=== PATIENT | male | born 1985 | race African-American/Black ===

== ENCOUNTER 2019-05-11 13:33 | Inpatient (IN) ==
[2019-05-11] MEDS ORDERED: SODIUM CHLORIDE 0.9% 1000ML 1,000 ML IV SCH (14:00)
--- NOTE | 2019-05-11 14:09 | XRay Report ---
XR chest 1V portable CLINICAL HISTORY: 33 years-old Male presenting with OD. TECHNIQUE: Portable upright AP view of the chest was obtained. COMPARISON: None. FINDINGS: Cardiomediastinal silhouette normal. Moderately low lung lines. No focal opacity. No large effusion o r pneumothorax. Osseous structures normal. Upper abdomen normal. IMPRESSION: 1. Mildly low lung volumes. Otherwise no acute cardiopulmonary disease. Electronically signed by: Marvin Paige M.D. 05/11/2019 2:07 PM
[2019-05-11 14:15] LABS: Basophils # (auto) 0.01 K/uL (0-0.2); Basophils % (auto) 0.2 %; Eosinophils # (auto) 0.06 K/uL (0-0.5); Hematocrit (blood only) 40.3 % (42-52); Hemoglobin 13.8 g/dL (14.0-18.0); Immature Granulocytes # (auto) 0.01 K/uL (0.00-0.02); Immature Granulocytes % (auto) 0.2 %; Lymphocytes # (auto) 1.66 K/uL (1.2-3.4); Lymphocytes % (auto) 26.6 %; Mean Corpuscular Hgb Conc 34.2 g/dL (32-36); Mean Corpuscular Volume 88.2 fL (80-100); Mean Platelet Volume 9.9 fL (7.4-10.4); Monocytes # (auto) 0.25 K/uL (0.11-0.59); Neutrophils # (auto) 4.25 K/uL (1.4-6.5); Platelet Count 223 K/uL (130-400); RDW Coefficient of Variation 13.1 % (11.5-14.5); RDW Standard Deviation 42.4 fL (36.4-46.3); Red Blood Count 4.57 M/uL (4.7-6.1); White Blood Count 6.24 K/uL (4.8-10.8)
[2019-05-11 14:27] LABS: INR 1.1 (0.9-1.1); Partial Thromboplastin Time 26.7 Seconds (21.0-31.0); Prothrombin Time 10.9 Seconds (9.0-12.0)
[2019-05-11 14:38] LABS: iSTAT Creatinine 0.9 mg/dl (0.6-1.3); iSTAT Hemoglobin 13.9 g/dl (14.0-18.0); iSTAT Ionized Calcium 1.2 mmol/l (1.12-1.32); iSTAT Potassium 3.4 mEq/L (3.3-5.0)
[2019-05-11 14:43] LABS: Carbon Dioxide 25 mmol/L (21-32); Chloride 109 mmol/L (98-107); Potassium 3.5 mmol/L (3.5-5.1); Sodium 141 mmol/L (136-145)
[2019-05-11 14:44] LABS: Alanine Aminotransferase 25 U/L (12-78); Anion Gap 7 (3-11); Aspartate Aminotransferase 13 U/L (15-37); BUN Creatinine Ratio 14.8 (10-20); Blood Urea Nitrogen 13 mg/dl (7-18); Calcium 9.1 mg/dl (8.5-10.1); Creatine Kinase 188 U/L (39-308); Creatinine Clr Calc Pharmacy 143.4 ml/min; Est GFR (Non-African American) 111.3; Glucose 109 mg/dl (70-99); Magnesium 2.4 mg/dl (1.8-2.4); Total Protein 7.8 gm/dl (6.4-8.2); Troponin I < 0.015 ng/ml (0-0.045)
[2019-05-11 14:45] LABS: Albumin Globulin Ratio 1.2 (0.9-2); Albumin Level 4.3 gm/dl (3.4-5.0); Alkaline Phosphatase 47 U/L (45-117); Globulin 3.5 gm/dl (2.5-4.0)
[2019-05-11 14:48] LABS: Base Excess VBG 0.9 mEq/L; HCO3 VBG 26 mmol/L; PCO2 VBG 42 mmHg (38-50); PO2 VBG 81 mmHg
[2019-05-11 15:00] LABS: Acetaminophen 38 ug/ml (10-30); Salicylate < 1.7 mg/dl (2.8-20)
[2019-05-11] MEDS ORDERED: ONDANSETRON INJ 2 MG/ML 2 ML VIAL IV PRN (15:52)
--- NOTE | 2019-05-11 15:58 | History & Physical Report ---
Date of Service May 11, 2019 Assessment & Plan (1) Overdose: (2) Major depressive disorder with current active episode: (3) Anxiety: (4) Suicidal ideation: -Admit to telemetry -Patient was apparently participating in behavioral health/psychiatric group sessions and counseling for about approximately 1 month up until 3 days ago when he was released into the stepdown unit at the detention. -Place patient on one-to-one -Suicidal precautions -EKG reviewed showing sinus tach -Psych consultation, likely will be able to transition to their service in the morning -Allow diet once awake -Continue NSS 125 mL/h (5) Tobacco dependence: - Current tobacco user, smokes -Will offer nicotine patch once patient is awake. DVT ppx: teds Code: Full Code Dispo: From [facility], likely discharge to psychiatric floor in am. History of Present Illness Primary Care Provider: ELICIA Laguerre This is a 33 yo M with PMhx of depression, anxiety who performed, p.o. correctional facility with acute suicidal ideation and consumption of unknown amount of unidentified medications. The patient is lethargic upon examination, and unable to participate in any conversation, he did react to sternal rub. 2 guards are with him at bedside. They state that the patient was brought to the ER approximately 2 hours ago. They report that he was in a cell block for approximately 1 month psychiatric/behavioral health and was released 3 days ago. Since then he has not been dealing well with the transition to the stepdown from the general population in the detention. He was going to be reevaluated by a panel today for re-admission into the psychiatric/behavioral health block, and upon learning this he then ingested unknown amount/unidentified medications. The patient has access to Seroquel 450 mg at bedtime and 50 mg daily, clonidine 0.1 mg twice daily, and paroxetine 40 mg at bedtime. Again it is unknown as to the amount of medication that the patient actually ingested. Acetaminophen level is 38, Poison Control Center was contacted but does not meet recommendations for N-acetylcysteine administration. Urine drug screen has not yet been obtained EKG was reviewed showing sinus tach Allergies Allergy/AdvReac Type Severity Reaction Status Date / Time No Known Allergies Allergy Verified 05/11/19 14:29 Home Medications Home Medications Medication Instructions Recorded Confirmed Type clonidine HCl 0.1 mg PO BID 12/02/18 05/11/19 History docusate sodium [Colace] 100 mg PO DAILY 12/02/18 05/11/19 History levomefolate calcium 15 mg PO DAILY 12/02/18 05/11/19 History [L-Methylfolate] paroxetine HCl [Paxil] 40 mg PO HS 12/02/18 05/11/19 History quetiapine [Seroquel XR] 150 mg PO HS 12/02/18 05/11/19 History quetiapine [Seroquel XR] 300 mg PO HS 12/02/18 05/11/19 History quetiapine [Seroquel] 50 mg PO DAILY 12/02/18 05/11/19 History Past Med/Surg History Medical History Tobacco dependence Suicidal ideation Anxiety Major depressive disorder with current active episode Overdose Family history unobtainable Psychiatric disorder Family History Other No known problems Social History Feels Safe at Home: Yes Smoking Status: Current every day smoker Review of Systems Review of Systems: Unobtainable due to cognitive status Physical Exam Physical Exam: General: Asleep throughout examination, does react to sternal rub no apparent distress Head: Normocephalic, atraumatic ENT: PERRL, pupils are pinpoint, no pharyngeal exudate, mucous membranes slightly dry Chest: Clear to auscultation, on room air, no adventitious breath sounds Cardiac: Tachycardic, no murmur, no JVD, normal peripheral pulses Abdominal: NABS x 4 quadrants, soft, nontender to palpation, no rebound, guarding or tenderness Extremities: Normal inspection, no peripheral edema or erythema, calfs nontender to palpation Neuro: Asleep, arousable with sternal rub Skin: + Multiple tattoos, no rash or erythema Psych: Suicidal ideation Constitutional: WD/WN, vitals as above Eyes: normal visual akins by confrontation and + anicteric sclerae Neck: normal visual inspection and trachea midline Respiratory: normal respiratory effort, lungs clear to auscultation Cardiovascular: Rate/Rhythm: regular rate and regular rhythm Gastrointestinal (Abdomen): Inspection/Auscultation: abdomen not distended Percussion/Palpation: abdomen soft; abdomen nontender Musculoskeletal: Head/Neck/Chest: normocephalic and head atraumatic Neg for peripheral LE edema, + pedal pulses Skin: no rashes, warm and dry Neurologic: + obtunded; + not awake Psychiatric: Orientation: + not alert unresponsive to verbal stimulus Lymphatic: Exam as done by Ayleen Hinds DO Results & Data Vital Signs (Past 12 Hours) Vital Signs Temp Pulse Pulse Resp BP BP Pulse Ox 05/11/19 15:10 85 14 95 05/11/19 15:00 83 13 113/62 95 05/11/19 14:50 87 14 94 05/11/19 14:40 89 14 95 05/11/19 14:30 89 14 125/63 95 05/11/19 14:20 93 H 13 95 05/11/19 14:10 90 15 95 05/11/19 14:02 106 H 14 94 05/11/19 14:00 98 H 15 116/68 94 05/11/19 13:57 95 H 91 H 16 118/65 118/65 95 05/11/19 13:36 37.1 C 157 H 22 95/51 L 97 Diagnostic Findings XR chest 1V portable CLINICAL HISTORY: 33 years-old Male presenting with OD. TECHNIQUE: Portable upright AP view of the chest was obtained. COMPARISON: None. FINDINGS: Cardiomediastinal silhouette normal. Moderately low lung lines. No focal opacity. No large effusion or pneumothorax. Osseous structures normal. Upper abdomen normal. IMPRESSION: 1. Mildly low lung volumes. Otherwise no acute cardiopulmonary disease. Code Status & VTE Plan Code Status Full code Supervising Physician Co-Signing Physician Notes Pt seen and examined by me. Unresponsive s/p ingestion of unknown medication Agree with HPI/ROS as noted by PA See above for my exam in PE section Agree with plan as outlined above Overdose, appears intentional Acetaminophen levels mildly elevated but ED reports that levels are c/w regular tylenol use, which pt does use No airway compromise Labs WNL PG Care Time/CCT Total # of Minutes Spent Total Time Spent with Patient: Total time spent is greater than 50% in coordination of care (as documented) at patient's floor/unit and/or counseling patient:
--- NOTE | 2019-05-11 16:20 | Emergency Department Note ---
Entered by Marisel Jacinto acting as a scribe for Yonis Kauffman DO History of Present Illness General Chief complaint: Overdose (Intentional) Stated complaint: INGESTION OF LARGE AMOUNT OF UNKNOWN PILLS Source: other (Guards) History of Present Illness Provider complaint: Intentional Overdose Onset (ago): hour(s) 2 Location: mouth (overdose ) Pain Consistency: + other (episode) The patient is a 33 year old male who presents to the ED with complaints of an.episode of an overdose that happened 2 hours ago. According to the guards, the patient was being transferred to another block and was taken down to process him in. They state the patient overdosed on Seroquel. Additional history was obtained from the guards and patient information was obtained from the facility. HPI is limited secondary to the patient's unresponsiveness. Home Medications Home Medications Medication Instructions Recorded Confirmed Type clonidine HCl 0.1 mg PO BID 12/02/18 05/11/19 History docusate sodium [Colace] 100 mg PO DAILY 12/02/18 05/11/19 History levomefolate calcium 15 mg PO DAILY 12/02/18 05/11/19 History [L-Methylfolate] paroxetine HCl [Paxil] 40 mg PO HS 12/02/18 05/11/19 History quetiapine [Seroquel XR] 150 mg PO HS 12/02/18 05/11/19 History quetiapine [Seroquel XR] 300 mg PO HS 12/02/18 05/11/19 History quetiapine [Seroquel] 50 mg PO DAILY 12/02/18 05/11/19 History Allergies Allergy/AdvReac Type Severity Reaction Status Date / Time No Known Allergies Allergy Verified 05/11/19 14:29 Past Med/Surg History Medical History Tobacco dependence Suicidal ideation Anxiety Major depressive disorder with current active episode Overdose Family history unobtainable Psychiatric disorder Family History Other No known problems Social History Preferred Language: [place] Communication Ability: Impaired Beliefs That Will Affect Care: None marital status: Single Current Living Situation: Other Current Living Situation Comment: inmate Feels Safe at Home: Yes Smoking Status: Current some day smoker Tobacco Type: cigarettes Second Hand Exposure: Yes Hx Alcohol Use: No Review of Systems Other (ROS is limited secondary to the patients unresponsiveness. ) Physical Exam Vital Signs Vital Signs - 24 hr 05/11/19 13:36 05/11/19 13:57 05/11/19 14:00 Temperature 37.1 C Temperature Source Oral Sepsis Recent Fever Within 48 Hours No Sepsis New/Unexplained Change in Mental Status No Sepsis Action Taken by Nursing No Action Required Pulse Rate 157 H 95 H 98 H Pulse Rate [Apical] 91 H Pulse Rate from SpO2 Sensor 97 H 98 H Pulse Strength Normal Respiratory Rate 22 16 15 Respiratory Effort / Characteristics Non-Labored Spontaneous Respiratory Depth Normal Respiratory Pattern Regular Blood Pressure 95/51 L 118/65 116/68 Blood Pressure [Left Arm] 118/65 Blood Pressure Mean 65 82 84 Blood Pressure Mean [Left Arm] 82 Blood Pressure Position Sitting Pulse Oximetry 97 95 94 Oxygen Delivery Method Room Air Room Air 05/11/19 14:02 05/11/19 14:10 05/11/19 14:20 Temperature Temperature Source Sepsis Recent Fever Within 48 Hours Sepsis New/Unexplained Change in Mental Status Sepsis Action Taken by Nursing Pulse Rate 106 H 90 93 H Pulse Rate [Apical] Pulse Rate from SpO2 Sensor 104 H 90 92 H Pulse Strength Respiratory Rate 14 15 13 Respiratory Effort / Characteristics Respiratory Depth Respiratory Pattern Blood Pressure Blood Pressure [Left Arm] Blood Pressure Mean Blood Pressure Mean [Left Arm] Blood Pressure Position Pulse Oximetry 94 95 95 Oxygen Delivery Method 05/11/19 14:30 05/11/19 14:40 05/11/19 14:50 Temperature Temperature Source Sepsis Recent Fever Within 48 Hours Sepsis New/Unexplained Change in Mental Status Sepsis Action Taken by Nursing Pulse Rate 89 89 87 Pulse Rate [Apical] Pulse Rate from SpO2 Sensor 90 88 87 Pulse Strength Respiratory Rate 14 14 14 Respiratory Effort / Characteristics Respiratory Depth Respiratory Pattern Blood Pressure 125/63 Blood Pressure [Left Arm] Blood Pressure Mean 83 Blood Pressure Mean [Left Arm] Blood Pressure Position Pulse Oximetry 95 95 94 Oxygen Delivery Method 05/11/19 15:00 05/11/19 15:10 Temperature Temperature Source Sepsis Recent Fever Within 48 Hours Sepsis New/Unexplained Change in Mental Status Sepsis Action Taken by Nursing Pulse Rate 83 85 Pulse Rate [Apical] Pulse Rate from SpO2 Sensor 83 85 Pulse Strength Respiratory Rate 13 14 Respiratory Effort / Characteristics Respiratory Depth Respiratory Pattern Blood Pressure 113/62 Blood Pressure [Left Arm] Blood Pressure Mean 79 Blood Pressure Mean [Left Arm] Blood Pressure Position Pulse Oximetry 95 95 Oxygen Delivery Method GENERAL: Patient was sleeping when I entered the room. The patient answeres to verbal commands but is combative. EYES: The conjunctivae are clear. The pupils are mid-sized and reactive. EARS, NOSE, MOUTH AND THROAT: T Mucous membranes are moist. NECK: The neck is nontender and supple. RESPIRATORY: Normal respiratory effort is noted. There is no evidence of wheezing rhonchi or rales to auscultation. CARDIOVASCULAR: Tachycardic rate but regular rhythm noted. There no definite murmurs. GASTROINTESTINAL: The abdomen is soft. Bowel sounds are present in all quadrants. Abdomen is nontender. MUSCULOSKELETAL/EXTREMITIES: There is no evidence of gross deformity. Full range of motion is noted in the hips and shoulders. SKIN: There is no obvious evidence of any rash. There are no petechiae, pallor or cyanosis noted. Warm and dry pulses were symmetric in both feet. NEUROLOGIC: Patient will not answer questions at this time. The patient is unable to assess orientation. Moves all extremities. Strength is symmetric. Patellar reflexes are 2+ bilaterally. PSYCH: Unable to assess at this time. Course 1412: The patient was evaluated in room C12B. A physical exam was performed. 1542: I checked on the patient. 1530: I reviewed the patient's case with Dr. Hinds, [facility] Hospitalist. 1545: Upon reevaluation, the patient is still obtunded and not acting appropriately. The patient will be evaluated for further management and care. Administered Medications Discontinued Medications Sodium Chloride (Nss 1000ml) 1,000 mls @ 999 mls/hr IV .[id number] MARNIE Stop: 05/11/19 15:00 Last Infusion: 05/11/19 16:07 Dose: 0 mls/hr Documented by: [id number] Admin: 05/11/19 14:02 Dose: 999 mls/hr Documented by: [id number] Sodium Chloride (Nss 1000ml) 1,000 mls @ 125 mls/hr IV .Q8H MARNIE Stop: 06/10/19 15:59 Last Infusion: 05/12/19 11:54 Dose: 0 mls/hr Documented by: [id number] Admin: 05/12/19 10:19 Dose: Not Given Documented by: [id number] Admin: 05/12/19 02:46 Dose: 125 mls/hr Documented by: [id number] Infusion: 05/12/19 02:46 Dose: 125 mls/hr Documented by: [id number] Admin: 05/11/19 18:59 Dose: 125 mls/hr Documented by: [id number] Ibuprofen (Motrin) 600 mg PO NOW STA Stop: 05/12/19 12:55 Last Admin: 05/12/19 14:34 Dose: 600 mg Documented by: [id number] Medical Decision Making Differential Diagnosis Differential diagnosis: Etiologies such as toxicological process, infection, hypoglycemia, electrolyte abnormalities, cardiac sources, intracerebral event, neurologic process, as well as others were entertained. Medical Records Attestation: I reviewed the patient's medical records. Home Medications Current Medication List: was personally reviewed by me Laboratory Data Attestation: I reviewed the patient's lab results. Result diagrams: 05/11/19 14:05 05/12/19 06:53 Lab Results 05/11/19 05/11/19 05/11/19 Range/Units 14:05 14:05 14:05 WBC 6.24 (4.8-10.8) K/uL RBC 4.57 L (4.7-6.1) M/uL Hgb 13.8 L (14.0-18.0) g/dL POC Hgb (14.0-18.0) g/dl Hct 40.3 L (42-52) % POC Hct (42-52) % MCV 88.2 (80-100) fL MCH 30.2 (25-34) pg MCHC 34.2 (32-36) g/dL RDW Std Deviation 42.4 (36.4-46.3) fL RDW Coeff of Ky 13.1 (11.5-14.5) % Plt Count 223 (130-400) K/uL MPV 9.9 (7.4-10.4) fL Immature Gran % (Auto) 0.2 % Neut % (Auto) 68.0 % Lymph % (Auto) 26.6 % [place] % (Auto) 4.0 % Eos % (Auto) 1.0 % Baso % (Auto) 0.2 % Immature Gran # (Auto) 0.01 (0.00-0.02) K/uL Neut # (Auto) 4.25 (1.4-6.5) K/uL Lymph # (Auto) 1.66 (1.2-3.4) K/uL [place] # (Auto) 0.25 (0.11-0.59) K/uL Eos # (Auto) 0.06 (0-0.5) K/uL Baso # (Auto) 0.01 (0-0.2) K/uL PT 10.9 (9.0-12.0) Seconds INR 1.1 (0.9-1.1) APTT 26.7 (21.0-31.0) Seconds PTT Ratio 1.0 VBG pH (7.36-7.41) VBG pCO2 (38-50) mmHg VBG pO2 mmHg VBG HCO3 mmol/L VBG O2 Saturation % VBG Base Excess mEq/L POC Sodium (135-144) mEq/L Sodium 141 (136-145) mmol/L POC Potassium (3.3-5.0) mEq/L Potassium 3.5 (3.5-5.1) mmol/L POC Chloride (101-112) mEq/L Chloride 109 H (98-107) mmol/L Carbon Dioxide 25 (21-32) mmol/L POC Total CO2 (24-31) mEq/l Anion Gap 7 (3-11) POC Anion Gap (16-25) mmol/L POC BUN (7-18) mg/dl BUN 13 (7-18) mg/dl Creatinine 0.88 (0.6-1.4) mg/dl POC Creatinine (0.6-1.3) mg/dl Est Cr Clr Drug Dosing 143.4 ml/min Est GFR ( Amer) 129.0 Est GFR (Non-Af Amer) 111.3 BUN/Creatinine Ratio 14.8 (10-20) Glucose 109 H (70-99) mg/dl POC Glucose (other) (70-99) mg/dl Osmolality (280-300) mOsm/kg Calcium 9.1 (8.5-10.1) mg/dl POC Ioniz Calcium Jocelyn (1.12-1.32) mmol/l Magnesium 2.4 (1.8-2.4) mg/dl Total Bilirubin 1.0 (0.2-1) mg/dl AST 13 L (15-37) U/L ALT 25 (12-78) U/L Alkaline Phosphatase 47 (45-117) U/L Total Creatine Kinase 188 (39-308) U/L Troponin I < 0.015 (0-0.045) ng/ml Total Protein 7.8 (6.4-8.2) gm/dl Albumin 4.3 (3.4-5.0) gm/dl Globulin 3.5 (2.5-4.0) gm/dl Albumin/Globulin Ratio 1.2 (0.9-2) Salicylates (2.8-20) mg/dl Acetaminophen (10-30) ug/ml Ethyl Alcohol mg/dL (0-3) mg/dl 05/11/19 05/11/19 05/11/19 Range/Units 14:05 14:05 14:21 WBC (4.8-10.8) K/uL RBC (4.7-6.1) M/uL Hgb (14.0-18.0) g/dL POC Hgb 13.9 L (14.0-18.0) g/dl Hct (42-52) % POC Hct 41 L (42-52) % MCV (80-100) fL MCH (25-34) pg MCHC (32-36) g/dL RDW Std Deviation (36.4-46.3) fL RDW Coeff of Ky (11.5-14.5) % Plt Count (130-400) K/uL MPV (7.4-10.4) fL Immature Gran % (Auto) % Neut % (Auto) % Lymph % (Auto) % [place] % (Auto) % Eos % (Auto) % Baso % (Auto) % Immature Gran # (Auto) (0.00-0.02) K/uL Neut # (Auto) (1.4-6.5) K/uL Lymph # (Auto) (1.2-3.4) K/uL [place] # (Auto) (0.11-0.59) K/uL Eos # (Auto) (0-0.5) K/uL Baso # (Auto) (0-0.2) K/uL PT (9.0-12.0) Seconds INR (0.9-1.1) APTT (21.0-31.0) Seconds PTT Ratio VBG pH (7.36-7.41) VBG pCO2 (38-50) mmHg VBG pO2 mmHg VBG HCO3 mmol/L VBG O2 Saturation % VBG Base Excess mEq/L POC Sodium 142 (135-144) mEq/L Sodium (136-145) mmol/L POC Potassium 3.4 (3.3-5.0) mEq/L Potassium (3.5-5.1) mmol/L POC Chloride 105 (101-112) mEq/L Chloride (98-107) mmol/L Carbon Dioxide (21-32) mmol/L POC Total CO2 23 L (24-31) mEq/l Anion Gap (3-11) POC Anion Gap 19.0 (16-25) mmol/L POC BUN 12 (7-18) mg/dl BUN (7-18) mg/dl Creatinine (0.6-1.4) mg/dl POC Creatinine 0.9 (0.6-1.3) mg/dl Est Cr Clr Drug Dosing ml/min Est GFR ( Amer) Est GFR (Non-Af Amer) BUN/Creatinine Ratio (10-20) Glucose (70-99) mg/dl POC Glucose (other) 114 H (70-99) mg/dl Osmolality 292 (280-300) mOsm/kg Calcium (8.5-10.1) mg/dl POC Ioniz Calcium Jocelyn 1.20 (1.12-1.32) mmol/l Magnesium (1.8-2.4) mg/dl Total Bilirubin (0.2-1) mg/dl AST (15-37) U/L ALT (12-78) U/L Alkaline Phosphatase (45-117) U/L Total Creatine Kinase (39-308) U/L Troponin I (0-0.045) ng/ml Total Protein (6.4-8.2) gm/dl Albumin (3.4-5.0) gm/dl Globulin (2.5-4.0) gm/dl Albumin/Globulin Ratio (0.9-2) Salicylates < 1.7 L (2.8-20) mg/dl Acetaminophen 38 H (10-30) ug/ml Ethyl Alcohol mg/dL (0-3) mg/dl 07/18/19 07/18/19 Range/Units 14:25 14:25 WBC (4.8-10.8) K/uL RBC (4.7-6.1) M/uL Hgb (14.0-18.0) g/dL POC Hgb (14.0-18.0) g/dl Hct (42-52) % POC Hct (42-52) % MCV (80-100) fL MCH (25-34) pg MCHC (32-36) g/dL RDW Std Deviation (36.4-46.3) fL RDW Coeff of Ky (11.5-14.5) % Plt Count (130-400) K/uL MPV (7.4-10.4) fL Immature Gran % (Auto) % Neut % (Auto) % Lymph % (Auto) % [place] % (Auto) % Eos % (Auto) % Baso % (Auto) % Immature Gran # (Auto) (0.00-0.02) K/uL Neut # (Auto) (1.4-6.5) K/uL Lymph # (Auto) (1.2-3.4) K/uL [place] # (Auto) (0.11-0.59) K/uL Eos # (Auto) (0-0.5) K/uL Baso # (Auto) (0-0.2) K/uL PT (9.0-12.0) Seconds INR (0.9-1.1) APTT (21.0-31.0) Seconds PTT Ratio VBG pH 7.40 (7.36-7.41) VBG pCO2 42 (38-50) mmHg VBG pO2 81 mmHg VBG HCO3 26 mmol/L VBG O2 Saturation 96.0 % VBG Base Excess 0.9 mEq/L POC Sodium (135-144) mEq/L Sodium (136-145) mmol/L POC Potassium (3.3-5.0) mEq/L Potassium (3.5-5.1) mmol/L POC Chloride (101-112) mEq/L Chloride (98-107) mmol/L Carbon Dioxide (21-32) mmol/L POC Total CO2 (24-31) mEq/l Anion Gap (3-11) POC Anion Gap (16-25) mmol/L POC BUN (7-18) mg/dl BUN (7-18) mg/dl Creatinine (0.6-1.4) mg/dl POC Creatinine (0.6-1.3) mg/dl Est Cr Clr Drug Dosing ml/min Est GFR ( Amer) Est GFR (Non-Af Amer) BUN/Creatinine Ratio (10-20) Glucose (70-99) mg/dl POC Glucose (other) (70-99) mg/dl Osmolality (280-300) mOsm/kg Calcium (8.5-10.1) mg/dl POC Ioniz Calcium Jocelyn (1.12-1.32) mmol/l Magnesium (1.8-2.4) mg/dl Total Bilirubin (0.2-1) mg/dl AST (15-37) U/L ALT (12-78) U/L Alkaline Phosphatase (45-117) U/L Total Creatine Kinase (39-308) U/L Troponin I (0-0.045) ng/ml Total Protein (6.4-8.2) gm/dl Albumin (3.4-5.0) gm/dl Globulin (2.5-4.0) gm/dl Albumin/Globulin Ratio (0.9-2) Salicylates (2.8-20) mg/dl Acetaminophen (10-30) ug/ml Ethyl Alcohol mg/dL < 3.0 (0-3) mg/dl Imaging Data Radiologist's Impression: Radiology results as stated below per my review and the radiologist's interpretation: XR chest 1V portable CLINICAL HISTORY: 33 years-old Male presenting with OD. TECHNIQUE: Portable upright AP view of the chest was obtained. COMPARISON: None. FINDINGS: Cardiomediastinal silhouette normal. Moderately low lung lines. No focal opacity. No large effusion or pneumothorax. Osseous structures normal. Upper abdomen normal. IMPRESSION: 1. Mildly low lung volumes. Otherwise no acute cardiopulmonary disease. Electronically signed by: Marvin Paige M.D. 05/11/2019 2:07 PM ECG Data Attestation: I personally reviewed and interpreted this ECG as follows: Indication: toxicologic Rate (beats per minute): 90 Rhythm: normal sinus Findings: no ST depression, no ST elevation and no ectopy Comparison ECG Date: from (12/02/18) Change: no significant change Blood Pressure Blood Pressure Findings: Normal blood pressure Blood Pressure Disposition: did not require urgent referral MDM Narrative The patient is a 33-year-old male who [facility] for an evaluation of altered mental status. The patient apparently took some of his prescription medications however it is unclear if this was an attempt to harm himself. The patient was obtunded and guarded when he arrived in the emergency department. He would not answer questions but did indicate that he may have taken his Seroquel. The patient was treated with IV fluids in the emergency department. Initially he was tachycardic and hypotensive. He responded well to IV fluids. I discussed the patient's laboratory and radiographic studies with the guards and at this time I do not feel the patient is cleared to be discharged back to the [facility]. For this reason I discussed his case with the on-call [facility] hospitalist group. They have agreed to evaluate the patient in the emergency department for further management and disposition. Impression & Plan Overdose, Sinus tachycardia, Hypotension, Altered mental status Discharge Plan Visit Data *Final* Discharge Date/Time: 05/11/19 17:01 Chief Complaint: Overdose (Intentional) Stated Complaint: INGESTION OF LARGE AMOUNT OF UNKNOWN PILLS ED Provider: Yonis Kauffman Discharge Problem: Overdose, Sinus tachycardia, Hypotension, Altered mental status Patient Disposition: Admitted As Inpatient Condition: Good Discharge Instructions Interventions: ED Discharge Assessment Last Done: 05/11/19 17:01 The scribe's documentation has been prepared under my direction and personally reviewed by me in its entirety. I confirm that the note above accurately reflects all work, treatment, procedures, and medical decision making performed by me.
[2019-05-11] MEDS: SODIUM CHLORIDE 0.9% 1000ML 1,000 ML IV SCH (18:59)
[2019-05-12] MEDS: SODIUM CHLORIDE 0.9% 1000ML 1,000 ML IV SCH ×2 (02:46→10:19)
[2019-05-12 07:13] LABS: Appearance Urine Clear (Clear); Bilirubin Urine Negative (Negative); Blood Urine Negative (Negative); Color Urine Yellow; Glucose Urine UA Negative (Negative); Ketones Urine 1+ (Negative); Leukocyte Esterase Urine Negative (Negative); Nitrite Urine Negative (Negative); Protein Urine Negative (Negative); Urobilinogen Urine Negative (Negative)
[2019-05-12 07:40] LABS: Amphetamines+Metham, Urine Neg (Neg); Barbiturates, Urine Neg (Neg); Benzodiazepine, Urine Neg (Neg); Cocaine, Urine Neg (Neg); MDMA (Ecstacy), Urine Neg (Neg); Methadone, Urine Neg (Neg); Opiate, Urine Neg (Neg); Phencyclidine, Urine Neg (Neg)
[2019-05-12 07:50] LABS: Albumin Level 3.6 gm/dl (3.4-5.0); BUN Creatinine Ratio 10.7 (10-20); Calcium 8.5 mg/dl (8.5-10.1); Creatinine Clr Calc Pharmacy 137.5 ml/min; Est GFR (African American) 137.7; Est GFR (Non-African American) 118.8; Potassium 3.7 mmol/L (3.5-5.1)
[2019-05-12 07:52] LABS: Albumin Globulin Ratio 1.3 (0.9-2); Bilirubin,Total 1.1 mg/dl (0.2-1); Globulin 2.8 gm/dl (2.5-4.0); Total Protein 6.4 gm/dl (6.4-8.2)
--- NOTE | 2019-05-12 11:56 | Psychiatric Consultation ---
Date of Consultation May 12, 2019 Impression / Recommendations Impression 33-year-old male admitted medically on 05/11/2019 status post intentional overdose of an unknown collection of medications. It is reported the patient may have had access to paroxetine, quetiapine, and clonidine. Patient endorses the overdose was intentional, and an attempt to end his life. He endorses ongoing suicidality as a combination of hopelessness and auditory hallucinations which command him to "kill myself." Patient endorses hearing these command hallucinations since he was a child. The patient does endorse suicidal thoughts, with a plan that he does not disclose. Due to current inmate status, patient is not appropriate for transfer to a separate inpatient psychiatric facility, but is psychiatrically stable for secure transfer back to the correctional facility upon medical clearance. We are recommending that patient be placed on suicide precautions, and extra steps be put into place to prevent suicide attempts within the facility. Patient should not be permitted to manage medications to prevent future overdose. Patient should continue meetings with a psychiatric prescriber at the correctional facility, and reports suggest changes are already underway to address his mood, suicidality, and auditory hallucinations. As patient is a limited historian, there is little information available with which we could recommend any medication adjustments. The correctional facility, we suspect, would have more extensive records of previous medication trials and response to medications. We therefore defer any medication adjustments to their psychiatric prescribers. Aside from additional suicide precautions on return to the correctional facility, our service does not have additional recommendations at this time. Discharge planning is deferred to primary medical team when it is felt he is appropriate for transfer back to the correctional facility. Dr. Mark Donohue was directly involved in review and discussion of the patient's case and participated in medical decision making regarding treatment recommendations. Risk Factors Assessment Do You Have Access To A Gun?: No CPT Code Initial Consultation: 24904 Psych History Identifying Data 33-year-old male admitted medically on 05/11/2019 following an intentional overdose of what is suspected to be his prescribed medications. The patient is an inmate at [facility], and it is reported he has access to several different medications which she may have used to attempt to end his life. It is unclear which medications the patient ingested and in what amount. He was lethargic upon admission, but is now cooperative. Psychiatric consultation was requested to evaluate patient for suicidality. History provided by patient is limited, in part due to reduced cooperation. Chief Complaint "I swallowed some pills." History of Present Illness Juan Hou ([id number]), inmate status at [facility] -admitted medically on 05/11/2019 following an intentional overdose. It is unclear what patient ingested, as well as the quantity of medication. The patient had access to quetiapine, clonidine, and paroxetineamong other agents. It is reported patient's acetaminophen level was slightly elevated on admission. Patient from [facility] suggest patient has had multiple previous suicide attempts. Hospital documentation suggests the patient has been receiving treatment on the [facility] psychiatric[facility]al health unit for the past month. It is reported he was transitioned back to the general inmate population in the last 3 days, with concern that this transfer may have played a role in his intentional overdose. Psychiatric consultation was requested to assess patient for suicidality following what is reported to be an intentional attempt to end his life. Upon initial examination, patient shakes his head when asked if he is willing to speak with this provider. After this provider explained that our conversation would assist with planning his next step of treatment, patient was minimally cooperative and answering this provider's questions. Patient does admit that he intentionally overdosed on his pills yesterday as an attempt to end his life. When asked what led to his intentional overdose, patient states "the voices told me to." The patient states that he is been experiencing auditory hallucinations "since I was little." Patient states the commands of these voices have changed over time. Most recently the voices have been telling him to "kill myself."Patient states that even when he is not experiencing auditory command hallucinations, he continues to have hopelessness and worthlessness leading to suicidality. Patient does admit to ongoing suicidality here in the hospital, with an ongoing plan, but does not indicate what this might be. Patient is a limited historian and is not aware of his current psychiatric medication regimen. It was reported that he had undergone recent medication adjustments, which she is unable to verify. At this time, patient's largest concern is the ongoing hallucinations and his low mood. Patient is guarded during our conv ersation, and is not cooperative with contributing additional information. He denies any side effects to his recent medication adjustments, but is concerned that they are not yet working. Education was provided on presumed adjustment of his antidepressant medications, and that affects of these medications may not be noticed for several weeks. According to present records, the patient carries the following diagnoses: - Major depressive disorder, recurrent, with psychotic features - Insomnia - Alcohol use disorder, severe - Antisocial personality disorder - Cannabis abuse disorder, moderate Past Psychiatric History Previous Psych History: Unclear at this time. Reports suggest that the patient had been residing in the psychiatric/behavioral health unit for the past month. It is questioned if his transition to the general inmate population 3 days ago is related to his attempt. Patient reportedly receives services through the correctional facility. Current Psychiatric Diagnosis: MDD, with psychotic features; antisocial PD, substance abuse disorders Do You Have Access To A Gun?: No History of Previous Suicide Attempt: Yes (per [facility] Records) Past Medication Trials: Pt is a limited historian; records suggest previous trials of: 1. Seroquel 2. Clonidine 3. Paxil 4. Prozac 5. Prazosin 6. Buspirone 7. Benadryl - insomnia Allergies Allergy/AdvReac Type Severity Reaction Status Date / Time No Known Allergies Allergy Verified 05/11/19 14:29 Home Medications Home Medications Medication Instructions Recorded Confirmed Type clonidine HCl 0.1 mg PO BID 12/02/18 05/11/19 History docusate sodium [Colace] 100 mg PO DAILY 12/02/18 05/11/19 History levomefolate calcium 15 mg PO DAILY 12/02/18 05/11/19 History [L-Methylfolate] paroxetine HCl [Paxil] 40 mg PO HS 12/02/18 05/11/19 History quetiapine [Seroquel XR] 150 mg PO HS 12/02/18 05/11/19 History quetiapine [Seroquel XR] 300 mg PO HS 12/02/18 05/11/19 History quetiapine [Seroquel] 50 mg PO DAILY 12/02/18 05/11/19 History Personal History Beliefs That Will Affect Care: None Patient History Medical History Tobacco dependence Suicidal ideation Anxiety Major depressive disorder with current active episode Overdose Family history unobtainable Psychiatric disorder Family History Other No known problems Social History (Reviewed 05/12/19 @ 12:29 by DARLYN Genao Preferred Language: Surinamese Communication Ability: Impaired [employer] Required: No Beliefs That Will Affect Care: None Current Living Situation: Other Current Living Situation Comment: inmate Other Information That Helps Us Care for You: No Feels Safe at Home: Yes Smoking Status: Current some day smoker Tobacco Type: cigarettes Do You Dip or Chew Tobacco: No Second Hand Exposure: Yes Hx Alcohol Use: No Physical Exam Psychiatric: Orientation: alert, oriented x 3 and + guarded; + uncooperative Apperance: appropriately groomed and appeared stated age male, laying in bed - tearful, but no acute distress. Initially covering his head with blanket, but removes from face during conversation. Short, well- groomed hair and mariee. Level of hygiene and hydration appear adequate. Eye Contact: + poor eye contact (covering face with blanket initially, then avoids direct eye contact) Motor Behavior: no abnormal motor movements (observed while laying in bed) Speech: normal rate/rhythm/volume of speech (very brief responses to questions, soft tone, difficult to hear) Affect: + depressed affect and + tearful affect Mood: + depressed mood Thought Process: goal directed thought process and + concrete thought process Thought Content: reality based without delusions Suicidal Thoughts: + reports suicidal thoughts, + reports suicidal plan and + reports suicidal intent Patient endorses ongoing suicidality Hallucinations: + auditory hallucinations (Endorses auditory command hallucinations telling him to kill himself); no visual hallucinations Cognition: attention grossly intact and language grossly intact Estimated Intelligence: consistent with education level Insight: + poor insight Judgement: + poor judgement Vital Signs (Past 24 Hours): Last Vital Signs Temp 36.5 C 05/12/19 06:52 Pulse 73 05/12/19 06:52 Resp 17 05/12/19 06:52 BP 100/67 05/12/19 06:52 Pulse Ox 98 05/12/19 06:52 Review of Systems Constitutional: reports headache Cardiovascular: denied Respiratory: denied Gastrointestinal: denied Neurological: denied Psychiatric: denies symptoms other than stated above Total of at least 10 systems reviewed, pertinent positives as above and in HPI. Results & Data Medications Administered Sodium Chloride (Nss 1000ml) 1,000 mls @ 125 mls/hr IV .Q8H MARNIE Stop: 06/10/19 15:59 Last Admin: 05/12/19 10:19 Dose: Not Given Documented by: [id number] Admin: 05/12/19 02:46 Dose: 125 mls/hr Documented by: [id number] Infusion: 05/12/19 02:46 Dose: 125 mls/hr Documented by: [id number] Admin: 05/11/19 18:59 Dose: 125 mls/hr Documented by: [id number]
[2019-05-12] MEDS ORDERED: IBUPROFEN 600 MG TAB PO STA (12:54)
--- NOTE | 2019-05-12 13:04 | Discharge Summary ---
Date of Service May 12, 2019 Admission HPI Per Admitting Provider Juan Hou ([id number]), inmate status at [facility] -admitted medically on 05/11/2019 following an intentional overdose. It is unclear what patient ingested, as well as the quantity of medication. The patient had access to quetiapine, clonidine, and paroxetineamong other agents. It is reported patient's acetaminophen level was slightly elevated on admission. Patient from [facility] suggest patient has had multiple previous suicide attempts. Hospital documentation suggests the patient has been receiving treatment on the facilities psychiatric/behavioral health unit for the past month. It is reported he was transitioned back to the general inmate population in the last 3 days, with concern that this transfer may have played a role in his intentional overdose. Psychiatric consultation was requested to assess patient for suicidality following what is reported to be an intentional attempt to end his life. Upon initial examination, patient shakes his head when asked if he is willing to speak with this provider. After this provider explained that our conversation would assist with planning his next step of treatment, patient was minimally cooperative and answering this provider's questions. Patient does admit that he intentionally overdosed on his pills yesterday as an attempt to end his life. When asked what led to his intentional overdose, patient states "the voices told me to." The patient states that he is been experiencing auditory hallucinations "since I was little." Patient states the commands of these voices have changed over time. Most recently the voices have been telling him to "kill myself."Patient states that even when he is not experiencing auditory command hallucinations, he continues to have hopelessness and worthlessness leading to suicidality. Patient does admit to ongoing suicidality here in the hospital, with an ongoing plan, but does not indicate what this might be. Patient is a limited historian and is not aware of his current psychiatric medication regimen. It was reported that he had undergone recent medication adjustments, which she is unable to verify. At this time, patient's largest concern is the ongoing hallucinations and his low mood. Patient is guarded during our conversation, and is not cooperative with contributing additional information. He denies any side effects to his recent medication adjustments, but is concerned that they are not yet working. Education was provided on presumed adjustment of his antidepressant medications, and that affects of these medications may not be noticed for several weeks. According to present records, the patient carries the following diagnoses: - Major depressive disorder, recurrent, with psychotic features - Insomnia - Alcohol use disorder, severe - Antisocial personality disorder - Cannabis abuse disorder, moderate Principal Diagnosis Intentional Overdose Suicide attempt Discharge Exam Constitutional WD/WN, vitals as above Eyes PERRL, conjunctivae normal, anicteric sclerae ENMT external ear and nose normal, oropharynx normal Neck trachea midline, no thyromegaly Respiratory normal respiratory effort, lungs clear to auscultation Cardiovascular RRR, no murmur, no edema Gastrointestinal (Abdomen) normal bowel sounds, soft, nontender, no hepatosplenomegaly Musculoskeletal Extremities: extremities normal to inspection; no cyanosis and no clubbing Skin no rashes, warm and dry Neurologic moves all extremities and awake; no focal motor deficits Psychiatric Orientation: alert, oriented x 3 and cooperative Eye Contact: + fair eye contact Affect: + depressed affect Mood: + depressed mood Discharge Data Allergies Allergy/AdvReac Type Severity Reaction Status Date / Time No Known Allergies Allergy Verified 05/11/19 14:29 Consultations 05/11/19 15:33 ED Decision to Admit Stat 05/11/19 15:53 Consult Case Management - Discharge Planning Routine 05/11/19 15:54 Consult Psychiatry Routine Ordered Studies CXR Hospital Course (1) Overdose: Of Seroquel, Paxil, and another unknown drug as per patient (was given to him by somebody). UDS was negative. APAP was 38 and then undetectable on repeat check. He was lethargic upon admission and this resolved. He was AAOx3 and eating, drinking at time of discharge. No arrhythmias on telemetry monitoring, renal and liver function, lytes all normal, CBC normal. Stable for dc the next day (2) Major depressive disorder with current active episode: f/u with Psychiatry upon discharge (3) Anxiety: f/u Psych (4) Suicidal ideation: as above (5) Tobacco dependence: - Current tobacco user, smokes -should quit Dispo-back to [facility] on Psych unit Total Time Total Time Spent Total Time Spent (In Minutes): >30 min Total Time Includes: Examination of the Patient, Discharge Planning, Medication Reconciliation and Communication With Other Providers (Detention NO Flores) Discharge Plan Discharge Items Patient Disposition: Correctional Facility Reason For Visit: OVERDOSE,INTENTIONAL Discharge Diagnosis: Intentional overdose Condition: Good Discharge Goals: Diagnostic testing and Improve disease control Activity: Resume your previous activity Bathing: No limitations Exercise/Sports: As tolerated Non-emergency contact: Primary Care Provider and Psychiatrist Call non-emergency contact if: you have any medication questions and your symptoms worsen Follow-up/Referrals: Carlotta RUBI [Primary Care Provider] - Diet: Regular Addtl Provider Instructions: Admitted for overdose of Seroquel, Paxil, and other unknown medication. Was lethargic on admission which improved. He had no arrhythmias, all chemistry and hematologic testing was normal. APAP level mildly elevated on admission and then returned to undetectable. He was alert, awake, talking, eating, and had no further issues. He can be discharged to the [facility] under Psychiatric care as discussed with NO Malone at the Detention. Prescriptions: Continued clonidine HCl 0.1 mg Tablet 0.1 mg PO BID RF: 0 paroxetine HCl [Paxil] 20 mg Tablet 40 mg PO HS RF: 0 docusate sodium [Colace] 100 mg Capsule 100 mg PO DAILY RF: 0 quetiapine [Seroquel] 50 mg Tablet 50 mg PO DAILY RF: 0 quetiapine [Seroquel XR] 300 mg Tablet Extended Release 24 Hr 300 mg PO HS RF: 0 quetiapine [Seroquel XR] 150 mg Tablet Extended Release 24 Hr 150 mg PO HS RF: 0 levomefolate calcium [L-Methylfolate] 15 mg Tablet 15 mg PO DAILY RF: 0 Stand-Alone Forms: [facility] Discharge Orders: Discharge Order (Routine); Ordered 05/12/19 Ordered By: Margaret Trinidad Admission Data Admit Date/Time: 05/11/19 15:53 Attending Provider: Margaret Trinidad Admit Provider: Ayleen Hinds Primary Care Provider: Carlotta RUBI Other Providers: Zena Del Real ; Ayleen Hinds Service: Telemetry Other Pending Studies at Discharge: No
== END 2019-05-12 17:00 | DRG 918 ==
LOC: ED 13:33 → 2S 15:53 → SUATTDRO 15:53 → 2S 17:01